=== PATIENT | male | born 1955 | race Caucasian/White ===

== ENCOUNTER 2023-05-01 03:32 | Inpatient (IN) | payer MEDICARE ==
[~2023-05-01] VITALS: Ht 172.7 cm; Wt 125.2 kg
[2023-05-01] MEDS ORDERED: FUROSEMIDE 40 MG/4 ML VIAL ONE ×4 (03:45→21:02)
[2023-05-01] MEDS ORDERED: NITROGLYCERIN OINT 1 GM PACKET TP ONE (03:45)
[2023-05-01] MEDS: FUROSEMIDE 40 MG/4 ML VIAL IV ONE (04:02)
[2023-05-01 04:07] LABS: ABG BASE EXCESS 4.1 mmol/L (-2.0-2.0); ABG HCO3 32.5 mmol/L (22.0-26.0); ABG PCO2 73.9 mmHg (35.0-48.0); ABG PH 7.261 (7.340-7.440); ABG PO2 148.3 mmHg (75.0-100.0); ABG SITE LEFT RADIAL; ABG TOTAL HEMOGLOBIN 9.6 G/dL (14.0-18.0); AaDO2 98.5 mmHg; COHb 1.6 % (0.0-3.9); MetHb 0.3 % (0.0-1.5); O2Hb 97.1 % (94.0-97.0)
[2023-05-01] MEDS: NITROGLYCERIN OINT 1 GM PACKET TP ONE (04:07)
[2023-05-01] MEDS ORDERED: DILT30TA2 PO (04:10)
[2023-05-01] MEDS ORDERED: ASCO500C18 PO (04:10)
[2023-05-01] MEDS ORDERED: DICL100G31 TP (04:10)
[2023-05-01] MEDS ORDERED: BISA5TAB10 PO (04:10)
[2023-05-01] MEDS ORDERED: CALC500T88 PO (04:10)
[2023-05-01] MEDS ORDERED: DOCU100C36 PO (04:10)
[2023-05-01] MEDS ORDERED: CARV3.122 PO (04:10)
[2023-05-01] MEDS ORDERED: ASPI81TA31 PO (04:10)
[2023-05-01 04:11] LABS: HEMATOCRIT 27.5 % (36.7-47.1); HEMOGLOBIN 8.7 g/dL (12.5-16.3); LYMPHOCYTES # (AUTO) 0.5 K/uL (0.8-4.8); MONOCYTES # (AUTO) 0.8 K/uL (0.1-1.30); NEUTROPHILS # (AUTO) 3.5 K/uL (1.8-8.9); PLATELET COUNT (AUTO) 254 K/uL (152-348); WHITE BLOOD COUNT (AUTO) 4.8 K/uL (3.6-10.2)
[2023-05-01] MEDS ORDERED: MAGN400O6 PO (04:11)
[2023-05-01] MEDS ORDERED: FERR-56 PO (04:11)
[2023-05-01] MEDS ORDERED: L. A1TAB10 PO (04:11)
[2023-05-01] MEDS ORDERED: NITR0.4T SL (04:11)
[2023-05-01] MEDS ORDERED: NA P133E RC (04:11)
[2023-05-01] MEDS ORDERED: GABA-532 PO (04:11)
[2023-05-01] MEDS ORDERED: BISA10SU61 RC (04:11)
[2023-05-01] MEDS ORDERED: ONDA-104 PO (04:11)
[2023-05-01] MEDS ORDERED: ACET-3117 PO (04:11)
[2023-05-01] MEDS ORDERED: DRON10CA5 PO (04:11)
[2023-05-01] MEDS ORDERED: POLY17PO4 PO (04:11)
[2023-05-01] MEDS ORDERED: VIT1TABL46 PO (04:11)
[2023-05-01] MEDS ORDERED: METO25TA6 PO (04:11)
[2023-05-01] MEDS ORDERED: ESCI10TA PO (04:11)
[2023-05-01] MEDS ORDERED: aspart insulin SUBCUT (04:11)
[2023-05-01] MEDS ORDERED: FURO40TA5 PO (04:11)
[2023-05-01] MEDS ORDERED: ENOX40DI SQ (04:11)
[2023-05-01] MEDS ORDERED: LOSA25TA27 PO (04:11)
[2023-05-01] MEDS ORDERED: MAG30ORA2 PO (04:11)
[2023-05-01] MEDS ORDERED: norco PO (04:11)
[2023-05-01] MEDS ORDERED: HYDR-894 PO (04:11)
[2023-05-01] MEDS ORDERED: IPRA3AMP22 IH (04:11)
[2023-05-01 04:24] LABS: BASOPHILS % (AUTO) 0.7 % (0.0-2.0); EOSINOPHILS % (AUTO) 0.8 % (0.0-7.0); LYMPHOCYTES % (AUTO) 10.1 % (20.5-51.5); MEAN CORPUSCULAR HEMOGLOBIN 28.5 uug (23.8-33.4); MEAN CORPUSCULAR HGB CONC 32 g/dL (32.5-36.3); MEAN CORPUSCULAR VOLUME 90.5 fL (73.0-96.2); MONOCYTES % (AUTO) 16.9 % (0.0-11.0); NEUTROPHILS % (AUTO) 71.5 % (38.5-71.5); RED BLOOD CELL COUNT(AUTO) 3.04 MIL/uL (4.06-5.63); RED CELL DISTRIBUTION WIDTH 20.8 % (12.1-16.2)
[2023-05-01 04:39] LABS: ALANINE AMINOTRANSFERASE 95 U/L (16-63); ALBUMIN 2.8 g/dL (3.4-5.0); ALKALINE PHOSPHATASE 80 U/L (50-136); ASPARTATE AMINOTRANSFERASE 25 U/L (15-37); BILIRUBIN,DIRECT 0.6 mg/dL (0.0-0.2); CALCIUM 8.8 mg/dL (8.5-10.1); CARBON DIOXIDE 33 mmol/L (21-32); CHLORIDE 99 mmol/L (98-107); CREATININE 3.4 mg/dL (0.6-1.3); GLUCOSE 94 mg/dL (74-106); POTASSIUM 5.3 mmol/L (3.5-5.1); SODIUM SERUM 139 mmol/L (136-145); TOTAL PROTEIN, SERUM 7.4 g/dL (6.4-8.2); UREA NITROGEN, BLOOD 57 mg/dL (7-18)
[2023-05-01 04:43] LABS: DIFFERENTIAL COMMENT 1
[2023-05-01 05:00] LABS: NT-PRO BNP 40316 pg/mL (0-125)
[2023-05-01 05:03] LABS: *BLOOD, URINE NEGATIVE (NEGATIVE); *CLARITY,URINE SLIGHTLY CLOUDY (CLEAR); *COLOR,URINE YELLOW (YELLOW); *KETONES,URINE NEGATIVE (NEGATIVE); *PROTEIN,URINE 2+ (NEGATIVE); *UROBILINOGEN,URINE 0.2 E.U./dl (NORMAL); LEUKOCYTE ESTERASE ,URINE NEGATIVE (NEGATIVE); NITRITE, URINE NEGATIVE (NEGATIVE); PH,URINE 5.5 (5.0-8.0); UGLUCOSE NEGATIVE (NEGATIVE)
[2023-05-01] MEDS ORDERED: ONDANSETRON 4 MG/2 ML VIAL IV PRN (05:30)
[2023-05-01] MEDS ORDERED: hydrALAZINE HCL 20 MG/1 ML VIAL IV PRN (05:30)
[2023-05-01] MEDS ORDERED: ACETAMINOPHEN 325 MG TABLET PO PRN (05:30)
[2023-05-01] MEDS ORDERED: hydrALAZINE HCL 20 MG/1 ML VIAL ONE (05:30)
[2023-05-01] MEDS ORDERED: DEXTROSE 50% 50 ML DISP.SYRIN IV PRN (05:30)
[2023-05-01] MEDS ORDERED: INSULIN REGULAR, HUMAN 300 UNIT/3 ML VIAL SQ PRN (05:30)
[2023-05-01] MEDS ORDERED: ALBUTEROL SULFATE 8 GM HFA.AER.AD IH PRN (05:30)
[2023-05-01 05:32] LABS: ANISOCYTOSIS 2+; EOSINOPHILS % (MANUAL) 2 % (0-8); LYMPHOCYTES % (MANUAL) 10 % (20-40); MONOCYTES % (MANUAL) 12 % (2-10); NEUTROPHILS % (MANUAL) 75 % (42-75); PLATELET ESTIMATE ADEQUATE; PROMYELOCYTES % 1 %
[2023-05-01] MEDS: hydrALAZINE HCL 20 MG/1 ML VIAL IV ONE (05:39)
[2023-05-01 06:06] LABS: *BILIRUBIN,URIN 2+ (NEGATIVE)
[2023-05-01 06:14] LABS: BACTERIA,URINE FEW /HPF (NONE SEEN); RBC,URINE 0-3 /HPF (0-3); SQUAMOUS EPITHELIAL CELL,UR FEW /HPF (NONE SEEN); WBC,URINE 0-3 /HPF (0-3)
[2023-05-01 06:15] LABS: URINE AMORPHOUS URATE MODERATE /HPF
[2023-05-01] MEDS: BLOOD SUGAR DIAGNOSTIC 1 EACH STRIP VI SCH (08:13)
[2023-05-01] MEDS ORDERED: DOCUSATE SODIUM 100 MG CAPSULE PO ONE (10:50)
[2023-05-01] MEDS ORDERED: ESCITALOPRAM OXALATE 10 MG TABLET ONE (10:50)
[2023-05-01] MEDS ORDERED: HEPARIN SODIUM,PORCINE 5,000 UNITS/ML VIAL ONE ×2 (10:51→21:02)
[2023-05-01] MEDS ORDERED: CARVEDILOL 3.125 MG TABLET ONE (10:51)
[2023-05-01] MEDS: FUROSEMIDE 40 MG/4 ML VIAL IV SCH (11:00)
[2023-05-01] MEDS ORDERED: ALBUTEROL SULFATE 2.5 MG/3 ML NEBU NEB PRN (11:00)
[2023-05-01] MEDS: LOSARTAN POTASSIUM 25 MG TABLET PO SCH (11:01)
[2023-05-01] MEDS: CARVEDILOL 3.125 MG TABLET PO SCH (11:01)
[2023-05-01] MEDS: DOCUSATE SODIUM 100 MG CAPSULE PO SCH (11:01)
[2023-05-01] MEDS: ESCITALOPRAM OXALATE 10 MG TABLET PO SCH (11:01)
[2023-05-01] MEDS: FLUTICASONE/VILANTEROL 1 EACH BLST.W.DEV INH SCH (11:02)
[2023-05-01] MEDS ORDERED: GABAPENTIN 100 MG CAPSULE ONE (11:03)
[2023-05-01] MEDS: GABAPENTIN 100 MG CAPSULE PO SCH (11:06)
[2023-05-01] MEDS: HEPARIN SODIUM,PORCINE 5,000 UNITS/ML VIAL SQ SCH (11:12)
[2023-05-01] MEDS ORDERED: DILTIAZEM HCL 30 MG TABLET ONE ×2 (11:50→18:27)
[2023-05-01] MEDS: DILTIAZEM HCL 30 MG TABLET PO SCH (11:57)
[2023-05-01 16:08] LABS: *BLOOD, URINE 3+ (NEGATIVE); *CLARITY,URINE CLOUDY (CLEAR); *COLOR,URINE Brown (YELLOW); *KETONES,URINE TRACE (NEGATIVE); *PROTEIN,URINE 2+ (NEGATIVE); *UROBILINOGEN,URINE 0.2 E.U./dl (NORMAL); LEUKOCYTE ESTERASE ,URINE 1+ (NEGATIVE); NITRITE, URINE NEGATIVE (NEGATIVE); UGLUCOSE NEGATIVE (NEGATIVE)
[2023-05-01 16:09] LABS: *BILIRUBIN,URIN 1+ (NEGATIVE)
[2023-05-01 16:13] LABS: *CREATININE,URINE 179.6 mg/dL (30-125); *URINE TOTAL PROTEIN RANDOM 183.4 mg/dL (<150/24HR)
[2023-05-01 16:15] LABS: BACTERIA,URINE MANY /HPF (NONE SEEN); RBC,URINE TNTC /HPF (0-3); SQUAMOUS EPITHELIAL CELL,UR FEW /HPF (NONE SEEN); WBC,URINE 0-3 /HPF (0-3)
[2023-05-01] MEDS ORDERED: MORPHINE SULFATE 2 MG/1 ML DISP.SYRIN ONE (16:42)
[2023-05-01] MEDS ORDERED: ONDANSETRON 4 MG/2 ML VIAL ONE (16:42)
[2023-05-01] MEDS: PANTOPRAZOLE SODIUM 40 MG VIAL IV SCH (17:22)
[2023-05-01] MEDS: MORPHINE SULFATE 2 MG/1 ML DISP.SYRIN IVP PRN (17:22)
[2023-05-01] MEDS ORDERED: PANTOPRAZOLE SODIUM 40 MG VIAL ONE (17:24)
[2023-05-02] VITALS (18 sets, daily range): BP systolic 50–142; BP diastolic 13–130; TEMP 97.5; O2SAT 76–95
[2023-05-02] MEDS ORDERED: NOREPINEPHRINE BITARTRATE 4 MG/4 ML VIAL IV ONE ×5 (03:30→18:31)
[2023-05-02] MEDS ORDERED: PANTOPRAZOLE SODIUM 40 MG VIAL ONE (09:43)
[2023-05-02] MEDS ORDERED: HEPARIN SODIUM,PORCINE 5,000 UNITS/ML VIAL ONE (09:43)
[2023-05-02] MEDS ORDERED: FUROSEMIDE 40 MG/4 ML VIAL ONE (09:43)
[2023-05-02 10:44] LABS: ABG BASE EXCESS 0.4 mmol/L (-2.0-2.0); ABG HCO3 28.5 mmol/L (22.0-26.0); ABG PCO2 65.8 mmHg (35.0-48.0); ABG PH 7.255 (7.340-7.440); ABG PO2 65.6 mmHg (75.0-100.0); ABG SITE RIGHT RADIAL; ABG TOTAL HEMOGLOBIN 10.5 G/dL (14.0-18.0); AaDO2 89.1 mmHg; COHb 0.8 % (0.0-3.9); MetHb 0.2 % (0.0-1.5); O2Hb 90.5 % (94.0-97.0); VT, ABG 442 mL
[2023-05-02] MEDS ORDERED: CEFTRIAXONE /D5W 50ML IVPB **ER PYXIS IV ONE (21:14)
[2023-05-02] MEDS: NOREPINEPHRINE BITARTRATE 4 MG/4 ML VIAL IV ONE ×2 (21:25→22:17)
[2023-05-02] MEDS: CEFTRIAXONE 1 G in IV DEXTROSE 5% 50 ML IV SCH (21:37)
[2023-05-02] MEDS: NOREPINEPHRINE BITARTRATE 8 MG in IV NORMAL SALINE 242 ML IV PRN (22:19)
[2023-05-02] MEDS ORDERED: MIDAZOLAM HCL 50 MG in IV NORMAL SALINE 40 ML IV PRN (23:30)
[2023-05-02] MEDS ORDERED: SUCCINYLCHOLINE CHLORIDE 200 MG/10 ML VIAL ONE (23:30)
[2023-05-02] MEDS ORDERED: PHENYLEPHRINE IV 50 MG in IV NORMAL SALINE 245 ML IV PRN (23:30)
[2023-05-02] MEDS ORDERED: ETOMIDATE 20 MG/10 ML VIAL ONE (23:30)
[2023-05-02] MEDS ORDERED: FENTANYL CITRATE/PF 1,000 MCG in IV NORMAL SALINE 80 ML IV PRN (23:30)
[2023-05-03] VITALS (91 sets, daily range): BP systolic 37–161; BP diastolic 11–131; TEMP 98–100.2; O2SAT 90–98
[2023-05-03] MEDS: NOREPINEPHRINE BITARTRATE 4 MG/4 ML VIAL IV ONE ×3 (00:12→04:47)
[2023-05-03] MEDS: PHENYLEPHRINE 10 MG/1 ML VIAL ONE ×2 (00:36→01:40)
[2023-05-03] MEDS: PROPOFOL 100 ML IV PRN (00:37)
[2023-05-03] MEDS: PHENYLEPHRINE IV 50 MG in IV NORMAL SALINE 245 ML IV PRN (00:39)
[2023-05-03 01:44] LABS: ABG BASE EXCESS -0.7 mmol/L (-2.0-2.0); ABG HCO3 26.1 mmol/L (22.0-26.0); ABG PCO2 53.3 mmHg (35.0-48.0); ABG PH 7.307 (7.340-7.440); ABG PO2 61.1 mmHg (75.0-100.0); ABG SITE RIGHT RADIAL; ABG TOTAL HEMOGLOBIN 10.1 G/dL (14.0-18.0); AaDO2 88.8 mmHg; COHb 0.3 % (0.0-3.9); MetHb 0.2 % (0.0-1.5); O2Hb 89.2 % (94.0-97.0); VT, ABG 550 mL
[2023-05-03] MEDS ORDERED: AMIODARONE HCL 150 MG/3 ML VIAL IV ONE ×2 (01:47→01:48)
[2023-05-03] MEDS: AMIODARONE HCL IV 150 MG in IV DEXTROSE 5% 100 ML IV ONE (02:07)
[2023-05-03 05:20] LABS: BASOPHILS # (AUTO) 0.1 K/UL (0.0-0.2); BASOPHILS % (AUTO) 0.3 % (0.0-2.0); HEMATOCRIT 26.7 % (36.7-47.1); HEMOGLOBIN 8.3 g/dL (12.5-16.3); LYMPHOCYTES # (AUTO) 0.4 K/uL (0.8-4.8); LYMPHOCYTES % (AUTO) 1.6 % (20.5-51.5); MEAN CORPUSCULAR HEMOGLOBIN 28.3 uug (23.8-33.4); MEAN CORPUSCULAR HGB CONC 31 g/dL (32.5-36.3); MEAN CORPUSCULAR VOLUME 90.8 fL (73.0-96.2); MONOCYTES # (AUTO) 1.4 K/uL (0.1-1.30); MONOCYTES % (AUTO) 5.9 % (0.0-11.0); NEUTROPHILS # (AUTO) 21.1 K/uL (1.8-8.9); NEUTROPHILS % (AUTO) 92.2 % (38.5-71.5); PLATELET COUNT (AUTO) 266 K/uL (152-348); RED BLOOD CELL COUNT(AUTO) 2.94 MIL/uL (4.06-5.63); RED CELL DISTRIBUTION WIDTH 20.5 % (12.1-16.2); WHITE BLOOD COUNT (AUTO) 22.9 K/uL (3.6-10.2)
[2023-05-03 05:23] LABS: DIFFERENTIAL COMMENT 1
[2023-05-03 05:30] LABS: CALCIUM 8.3 mg/dL (8.5-10.1); CREATININE 4.1 mg/dL (0.6-1.3); MAGNESIUM 2.2 mg/dL (1.8-2.4); PHOSPHOROUS 6.9 mg/dL (2.5-4.9)
[2023-05-03] MEDS: AMIODARONE HCL IV 450 MG in IV DEXTROSE 5% 250 ML IV PRN (06:30)
[2023-05-03 07:25] LABS: ABG BASE EXCESS -2.8 mmol/L (-2.0-2.0); ABG HCO3 21.6 mmol/L (22.0-26.0); ABG PCO2 35.6 mmHg (35.0-48.0); ABG PO2 72.9 mmHg (75.0-100.0); ABG TOTAL HEMOGLOBIN 9.6 G/dL (14.0-18.0); AaDO2 94.8 mmHg; COHb 0.3 % (0.0-3.9); MetHb 0.4 % (0.0-1.5); O2Hb 93.1 % (94.0-97.0); VT, ABG 550 mL
[2023-05-03] MEDS ORDERED: NOREPINEPHRINE BITARTRATE 32 MG in IV NORMAL SALINE 218 ML IV PRN ×2 (07:30→08:00)
[2023-05-03] MEDS ORDERED: PHENYLEPHRINE IV 100 MG in IV NORMAL SALINE 240 ML IV PRN (08:00)
[2023-05-03] MEDS: ACETAMINOPHEN 650 MG SUPP.RECT RC PRN (08:34)
[2023-05-03] MEDS: NOREPINEPHRINE BITARTRATE 32 MG in IV NORMAL SALINE 218 ML IV PRN (09:22)
[2023-05-03] MEDS ORDERED: NORMAL SALINE IV ONE (09:45)
[2023-05-03] MEDS ORDERED: CHLOROTHIAZIDE SODIUM IV ONE (09:45)
[2023-05-03] MEDS: MUPIROCIN 2% OINT 22 GM TUBE NS SCH (10:43)
[2023-05-03] MEDS: METOLAZONE 2.5 MG TABLET GT ONE (10:43)
[2023-05-03] MEDS: FUROSEMIDE 20 MG/2 ML VIAL IV ONE (10:45)
[2023-05-03] MEDS: DEXTROSE 50% 50 ML DISP.SYRIN IV ONE (12:31)
[2023-05-03] MEDS: INSULIN REGULAR, HUMAN 300 UNIT/3 ML VIAL IV ONE (12:34)
[2023-05-03] MEDS: IV D5W 1000ML 1,000 ML IV PRN (12:48)
[2023-05-03 14:53] LABS: BASOPHILS % (AUTO) 0.1 % (0.0-2.0); HEMATOCRIT 26.4 % (36.7-47.1); HEMOGLOBIN 8.3 g/dL (12.5-16.3); LYMPHOCYTES # (AUTO) 0.5 K/uL (0.8-4.8); LYMPHOCYTES % (AUTO) 1.9 % (20.5-51.5); MEAN CORPUSCULAR HEMOGLOBIN 28.6 uug (23.8-33.4); MEAN CORPUSCULAR HGB CONC 32 g/dL (32.5-36.3); MEAN CORPUSCULAR VOLUME 90.7 fL (73.0-96.2); MONOCYTES # (AUTO) 1.4 K/uL (0.1-1.30); MONOCYTES % (AUTO) 5.8 % (0.0-11.0); NEUTROPHILS # (AUTO) 21.6 K/uL (1.8-8.9); NEUTROPHILS % (AUTO) 92.2 % (38.5-71.5); PLATELET COUNT (AUTO) 223 K/uL (152-348); RED BLOOD CELL COUNT(AUTO) 2.91 MIL/uL (4.06-5.63); RED CELL DISTRIBUTION WIDTH 20.9 % (12.1-16.2); WHITE BLOOD COUNT (AUTO) 23.4 K/uL (3.6-10.2)
[2023-05-03 15:01] LABS: DIFFERENTIAL COMMENT 1
[2023-05-03] MEDS: PHENYLEPHRINE IV 100 MG in IV NORMAL SALINE 240 ML IV PRN (15:01)
[2023-05-03 15:19] LABS: THYROID STIMULATING HORMONE 5.345 mIU/mL (0.358-3.740)
[2023-05-03] MEDS ORDERED: REMEDY ESSENTIAL ZINC PASTE 113 GM TOP PRN (15:30)
[2023-05-03 15:32] LABS: ALBUMIN 2.4 g/dL (3.4-5.0); BILIRUBIN,TOTAL 2.1 mg/dL (0.2-1.0); CREATININE 4.2 mg/dL (0.6-1.3); MAGNESIUM 2.2 mg/dL (1.8-2.4); PHOSPHOROUS 6.3 mg/dL (2.5-4.9); POTASSIUM 5.5 mmol/L (3.5-5.1); TOTAL PROTEIN, SERUM 6.8 g/dL (6.4-8.2)
[2023-05-03 16:28] LABS: MAGNESIUM 2.3 mg/dL (1.8-2.4); PHOSPHOROUS 6.4 mg/dL (2.5-4.9)
[2023-05-03] MEDS ORDERED: HEPARIN SODIUM,PORCINE 5,000 UNITS/ML VIAL SQ PRN (17:15)
[2023-05-03] MEDS: HEPARIN SODIUM,PORCINE 5,000 UNITS/ML VIAL IV ONE (17:26)
[2023-05-03] MEDS: HEPARIN/D5W DRIP 500 ML IV PRN (17:49)
[2023-05-03] MEDS ORDERED: PIPERACILLIN/TAZO 2.25 G in IV DEXTROSE 5% 50 ML IV SCH (21:15)
[2023-05-03] MEDS ORDERED: PIPERACILLIN/TAZOBACTAM/D5W 50 ML ONE (21:42)
[2023-05-03] MEDS: PIPERACILLIN/TAZO 2.25 G in IV DEXTROSE 5% 50 ML IV SCH (22:17)
[2023-05-04] VITALS (91 sets, daily range): BP systolic 71–143; BP diastolic 23–117; TEMP 97.4–98.9; O2SAT 91–98
[2023-05-04] MEDS ORDERED: PIPERACILLIN/TAZOBACTAM/D5W 50 ML ONE (02:48)
[2023-05-04 05:02] LABS: EOSINOPHILS # (AUTO) 0.1 K/uL (0.0-0.7); EOSINOPHILS % (AUTO) 0.5 % (0.0-7.0); HEMATOCRIT 25.3 % (36.7-47.1); HEMOGLOBIN 8.1 g/dL (12.5-16.3); LYMPHOCYTES # (AUTO) 0.6 K/uL (0.8-4.8); LYMPHOCYTES % (AUTO) 3.1 % (20.5-51.5); MEAN CORPUSCULAR HEMOGLOBIN 28.3 uug (23.8-33.4); MEAN CORPUSCULAR HGB CONC 32 g/dL (32.5-36.3); MEAN CORPUSCULAR VOLUME 88.9 fL (73.0-96.2); MONOCYTES # (AUTO) 0.9 K/uL (0.1-1.30); MONOCYTES % (AUTO) 5.1 % (0.0-11.0); NEUTROPHILS % (AUTO) 91.3 % (38.5-71.5); PLATELET COUNT (AUTO) 193 K/uL (152-348); RED BLOOD CELL COUNT(AUTO) 2.85 MIL/uL (4.06-5.63); RED CELL DISTRIBUTION WIDTH 21.3 % (12.1-16.2); WHITE BLOOD COUNT (AUTO) 18.6 K/uL (3.6-10.2)
[2023-05-04 05:12] LABS: DIFFERENTIAL COMMENT 1
[2023-05-04 05:26] LABS: ALBUMIN 2.2 g/dL (3.4-5.0); BILIRUBIN,TOTAL 2.1 mg/dL (0.2-1.0); CALCIUM 7.8 mg/dL (8.5-10.1); CREATININE 3.4 mg/dL (0.6-1.3); MAGNESIUM 2.1 mg/dL (1.8-2.4); PHOSPHOROUS 4.7 mg/dL (2.5-4.9); POTASSIUM 4.7 mmol/L (3.5-5.1); TOTAL PROTEIN, SERUM 6.2 g/dL (6.4-8.2)
[2023-05-04 08:50] LABS: ABG BASE EXCESS 2.1 mmol/L (-2.0-2.0); ABG PCO2 37.8 mmHg (35.0-48.0); ABG PH 7.456 (7.340-7.440); ABG PO2 85.4 mmHg (75.0-100.0); ABG TOTAL HEMOGLOBIN 9.2 G/dL (14.0-18.0); AaDO2 96.9 mmHg; COHb 0.3 % (0.0-3.9); MetHb 0.1 % (0.0-1.5); O2Hb 95.3 % (94.0-97.0); VT, ABG 550 mL
[2023-05-04 09:07] LABS: A/G RATIO 0.6 (0.7-1.7); ALBUMIN 2.5 g/dL (2.9-4.4); ALPHA-1-GLOBULIN 0.4 g/dL (0.0-0.4); ALPHA-2-GLOBULIN 0.5 g/dL (0.4-1.0); BETA GLOBULIN 0.9 g/dL (0.7-1.3); GAMMA GLOBULIN 2.1 g/dL (0.4-1.8); GLOBULIN, TOTAL 3.9 g/dL (2.2-3.9); M-SPIKE 0.7 g/dL (Not Observed)
[2023-05-04 12:06] LABS: HEPATITIS B SURFACE AB, QUAL Non Reactive (.); HEPATITIS B SURFACE AG Negative (Negative)
[2023-05-04] MEDS: PIPERACILLIN SODIUM/TAZOBACTAM 3.375 G in IV DEXTROSE 5% 100 ML IV SCH (14:03)
[2023-05-05] VITALS (89 sets, daily range): BP systolic 51–246; BP diastolic 36–206; TEMP 96.1–97.8; O2SAT 84–100
[2023-05-05 05:09] LABS: BASOPHILS % (AUTO) 0.2 % (0.0-2.0); EOSINOPHILS # (AUTO) 0.3 K/uL (0.0-0.7); EOSINOPHILS % (AUTO) 1.6 % (0.0-7.0); HEMATOCRIT 27.4 % (36.7-47.1); HEMOGLOBIN 8.8 g/dL (12.5-16.3); LYMPHOCYTES # (AUTO) 0.9 K/uL (0.8-4.8); LYMPHOCYTES % (AUTO) 4.5 % (20.5-51.5); MEAN CORPUSCULAR HEMOGLOBIN 28.1 uug (23.8-33.4); MEAN CORPUSCULAR HGB CONC 32 g/dL (32.5-36.3); MEAN CORPUSCULAR VOLUME 87.2 fL (73.0-96.2); MONOCYTES % (AUTO) 4.8 % (0.0-11.0); NEUTROPHILS # (AUTO) 18.7 K/uL (1.8-8.9); NEUTROPHILS % (AUTO) 88.9 % (38.5-71.5); PLATELET COUNT (AUTO) 192 K/uL (152-348); RED BLOOD CELL COUNT(AUTO) 3.14 MIL/uL (4.06-5.63); RED CELL DISTRIBUTION WIDTH 21.1 % (12.1-16.2); WHITE BLOOD COUNT (AUTO) 21.1 K/uL (3.6-10.2)
[2023-05-05 05:16] LABS: DIFFERENTIAL COMMENT 1
[2023-05-05 05:23] LABS: CALCIUM 7.2 mg/dL (8.5-10.1); CREATININE 3.3 mg/dL (0.6-1.3); MAGNESIUM 1.8 mg/dL (1.8-2.4); PHOSPHOROUS 4.6 mg/dL (2.5-4.9)
[2023-05-05 05:30] LABS: MetHb 0.3 % (0.0-1.5); VT, ABG 550 mL
[2023-05-05] MEDS ORDERED: CALCIUM CHLORIDE 1 GM/10 ML DISP.SYRIN IVP ONE (10:00)
[2023-05-05] MEDS ORDERED: EPINEPHRINE 1:10,000 1 MG/10 ML DISP.SYRIN ONE (10:00)
[2023-05-05] MEDS ORDERED: SODIUM BICARBONATE 8.4% 50 MEQ/50 ML DISP.SYRIN IV ONE (10:00)
[2023-05-05 10:35] LABS: CALCIUM 8.4 mg/dL (8.5-10.1); CREATININE 3.6 mg/dL (0.6-1.3); POTASSIUM 4.3 mmol/L (3.5-5.1)
[2023-05-05 10:36] LABS: BASOPHILS # (AUTO) 0.1 K/UL (0.0-0.2); BASOPHILS % (AUTO) 0.5 % (0.0-2.0); DIFFERENTIAL COMMENT 0; EOSINOPHILS # (AUTO) 0.6 K/uL (0.0-0.7); EOSINOPHILS % (AUTO) 2.3 % (0.0-7.0); HEMATOCRIT 30.1 % (36.7-47.1); HEMOGLOBIN 9.4 g/dL (12.5-16.3); LYMPHOCYTES # (AUTO) 1.5 K/uL (0.8-4.8); LYMPHOCYTES % (AUTO) 5.5 % (20.5-51.5); MEAN CORPUSCULAR HEMOGLOBIN 27.9 uug (23.8-33.4); MEAN CORPUSCULAR HGB CONC 31 g/dL (32.5-36.3); MEAN CORPUSCULAR VOLUME 89.6 fL (73.0-96.2); MONOCYTES # (AUTO) 1.3 K/uL (0.1-1.30); NEUTROPHILS # (AUTO) 22.9 K/uL (1.8-8.9); NEUTROPHILS % (AUTO) 86.7 % (38.5-71.5); PLATELET COUNT (AUTO) 196 K/uL (152-348); RED BLOOD CELL COUNT(AUTO) 3.36 MIL/uL (4.06-5.63); RED CELL DISTRIBUTION WIDTH 21.7 % (12.1-16.2); WHITE BLOOD COUNT (AUTO) 26.5 K/uL (3.6-10.2)
[2023-05-05 10:40] LABS: ALBUMIN 1.6 g/dL (3.4-5.0); BILIRUBIN,TOTAL 1.7 mg/dL (0.2-1.0); PHOSPHOROUS 7.1 mg/dL (2.5-4.9); TOTAL PROTEIN, SERUM 5.4 g/dL (6.4-8.2)
[2023-05-05 10:56] LABS: ABG BASE EXCESS -3.4 mmol/L (-2.0-2.0); ABG HCO3 23.2 mmol/L (22.0-26.0); ABG PH 7.294 (7.340-7.440); ABG PO2 76.1 mmHg (75.0-100.0); ABG SITE RIGHT RADIAL; ABG TOTAL HEMOGLOBIN 11.1 G/dL (14.0-18.0); AaDO2 93.7 mmHg; COHb 0.8 % (0.0-3.9)
[2023-05-05] MEDS: PIPERACILLIN/TAZO 2.25 G in IV DEXTROSE 5% 50 ML IV SCH (14:25)
[2023-05-06] VITALS (96 sets, daily range): BP systolic 61–171; BP diastolic 19–132; TEMP 97.5–99.1; O2SAT 89–100
[2023-05-06 05:19] LABS: BASOPHILS # (AUTO) 0.1 K/UL (0.0-0.2); BASOPHILS % (AUTO) 0.4 % (0.0-2.0); EOSINOPHILS # (AUTO) 0.2 K/uL (0.0-0.7); EOSINOPHILS % (AUTO) 0.7 % (0.0-7.0); HEMATOCRIT 28.9 % (36.7-47.1); HEMOGLOBIN 9.2 g/dL (12.5-16.3); LYMPHOCYTES # (AUTO) 2.2 K/uL (0.8-4.8); LYMPHOCYTES % (AUTO) 8.1 % (20.5-51.5); MEAN CORPUSCULAR HEMOGLOBIN 27.8 uug (23.8-33.4); MEAN CORPUSCULAR HGB CONC 32 g/dL (32.5-36.3); MEAN CORPUSCULAR VOLUME 87.5 fL (73.0-96.2); MONOCYTES # (AUTO) 1.8 K/uL (0.1-1.30); MONOCYTES % (AUTO) 6.5 % (0.0-11.0); NEUTROPHILS # (AUTO) 22.8 K/uL (1.8-8.9); NEUTROPHILS % (AUTO) 84.3 % (38.5-71.5); PLATELET COUNT (AUTO) 143 K/uL (152-348); RED CELL DISTRIBUTION WIDTH 21.2 % (12.1-16.2)
[2023-05-06 05:20] LABS: ABG BASE EXCESS -1.1 mmol/L (-2.0-2.0); ABG HCO3 24.2 mmol/L (22.0-26.0); ABG PH 7.368 (7.340-7.440); ABG PO2 64.3 mmHg (75.0-100.0); ABG SITE LEFT RADIAL; ABG TOTAL HEMOGLOBIN 10.7 G/dL (14.0-18.0); AaDO2 91.9 mmHg; COHb 0.2 % (0.0-3.9); MetHb 0.3 % (0.0-1.5); O2Hb 88.7 % (94.0-97.0); VT, ABG 550 mL
[2023-05-06 05:23] LABS: DIFFERENTIAL COMMENT 1
[2023-05-06 05:25] LABS: CALCIUM 8.1 mg/dL (8.5-10.1); CREATININE 3.1 mg/dL (0.6-1.3); POTASSIUM 4.4 mmol/L (3.5-5.1)
[2023-05-06 05:31] LABS: MAGNESIUM 1.8 mg/dL (1.8-2.4); PHOSPHOROUS 5.1 mg/dL (2.5-4.9)
[2023-05-06] MEDS: ALBUMIN HUMAN 25% 100 ML IV SCH (08:14)
[2023-05-06 08:33] LABS: ALBUMIN 1.9 g/dL (3.4-5.0); BILIRUBIN,DIRECT 1.8 mg/dL (0.0-0.2); BILIRUBIN,TOTAL 2.4 mg/dL (0.2-1.0); TOTAL PROTEIN, SERUM 6.2 g/dL (6.4-8.2)
[2023-05-06] MEDS: FUROSEMIDE 40 MG/4 ML VIAL IV SCH (09:43)
[2023-05-07] VITALS (89 sets, daily range): BP systolic 56–241; BP diastolic 18–124; TEMP 98.2–100.1; O2SAT 92–99
[2023-05-07] MEDS: VANCOMYCIN IV 2,000 MG in IV DEXTROSE 5% 500 ML IV ONE (02:00)
[2023-05-07] MEDS ORDERED: MEROPENEM 500MG/NS 50ML PB ***ER PYXIS ONLY IV ONE (02:54)
[2023-05-07] MEDS ORDERED: VANCOMYCIN 1000 MG VIAL ONE (02:55)
[2023-05-07] MEDS: MEROPENEM 500 MG in IV NORMAL SALINE 50 ML IV SCH ×2 (03:59→20:31)
[2023-05-07 05:35] LABS: BASOPHILS # (AUTO) 0.1 K/UL (0.0-0.2); BASOPHILS % (AUTO) 0.3 % (0.0-2.0); EOSINOPHILS % (AUTO) 0.1 % (0.0-7.0); HEMATOCRIT 27.8 % (36.7-47.1); HEMOGLOBIN 8.8 g/dL (12.5-16.3); LYMPHOCYTES # (AUTO) 0.9 K/uL (0.8-4.8); LYMPHOCYTES % (AUTO) 3.7 % (20.5-51.5); MEAN CORPUSCULAR HEMOGLOBIN 27.8 uug (23.8-33.4); MEAN CORPUSCULAR HGB CONC 32 g/dL (32.5-36.3); MEAN CORPUSCULAR VOLUME 87.3 fL (73.0-96.2); MONOCYTES # (AUTO) 2.2 K/uL (0.1-1.30); MONOCYTES % (AUTO) 9.2 % (0.0-11.0); NEUTROPHILS # (AUTO) 20.3 K/uL (1.8-8.9); NEUTROPHILS % (AUTO) 86.7 % (38.5-71.5); PLATELET COUNT (AUTO) 118 K/uL (152-348); RED BLOOD CELL COUNT(AUTO) 3.18 MIL/uL (4.06-5.63); RED CELL DISTRIBUTION WIDTH 21.2 % (12.1-16.2); WHITE BLOOD COUNT (AUTO) 23.5 K/uL (3.6-10.2)
[2023-05-07 05:56] LABS: CALCIUM 8.2 mg/dL (8.5-10.1); CREATININE 2.8 mg/dL (0.6-1.3); POTASSIUM 4.1 mmol/L (3.5-5.1)
[2023-05-07 06:17] LABS: DIFFERENTIAL COMMENT 1
[2023-05-07] MEDS: ACETAMINOPHEN 650 MG/20.3 ML LIQUID UDC GT ONE (08:00)
[2023-05-07] MEDS ORDERED: VANCOMYCIN IV 500 MG in IV DEXTROSE 5% 100 ML IV PRN (10:00)
[2023-05-07] MEDS: PHENYLEPHRINE IV 100 MG in IV NORMAL SALINE 240 ML IV PRN (12:09)
[2023-05-08] VITALS (72 sets, daily range): BP systolic 57–167; BP diastolic 28–119; TEMP 97.8–99.9; O2SAT 73–100
[2023-05-08 05:13] LABS: BASOPHILS % (AUTO) 0.1 % (0.0-2.0); EOSINOPHILS # (AUTO) 0.1 K/uL (0.0-0.7); EOSINOPHILS % (AUTO) 0.4 % (0.0-7.0); HEMATOCRIT 26.2 % (36.7-47.1); HEMOGLOBIN 8.3 g/dL (12.5-16.3); LYMPHOCYTES # (AUTO) 0.7 K/uL (0.8-4.8); LYMPHOCYTES % (AUTO) 4.6 % (20.5-51.5); MEAN CORPUSCULAR HEMOGLOBIN 27.6 uug (23.8-33.4); MEAN CORPUSCULAR HGB CONC 32 g/dL (32.5-36.3); MEAN CORPUSCULAR VOLUME 87.2 fL (73.0-96.2); MONOCYTES # (AUTO) 1.7 K/uL (0.1-1.30); MONOCYTES % (AUTO) 10.6 % (0.0-11.0); NEUTROPHILS # (AUTO) 13.5 K/uL (1.8-8.9); NEUTROPHILS % (AUTO) 84.3 % (38.5-71.5); PLATELET COUNT (AUTO) 124 K/uL (152-348); RED CELL DISTRIBUTION WIDTH 20.9 % (12.1-16.2); WHITE BLOOD COUNT (AUTO) 16.1 K/uL (3.6-10.2)
[2023-05-08 05:20] LABS: DIFFERENTIAL COMMENT 1
[2023-05-08 05:25] LABS: ALBUMIN 1.9 g/dL (3.4-5.0); BILIRUBIN,DIRECT 1.9 mg/dL (0.0-0.2); BILIRUBIN,TOTAL 2.6 mg/dL (0.2-1.0); CALCIUM 7.9 mg/dL (8.5-10.1); CREATININE 3.3 mg/dL (0.6-1.3); MAGNESIUM 1.9 mg/dL (1.8-2.4); PHOSPHOROUS 5.6 mg/dL (2.5-4.9); POTASSIUM 4.2 mmol/L (3.5-5.1); TOTAL PROTEIN, SERUM 5.6 g/dL (6.4-8.2)
[2023-05-08 06:09] LABS: ABG BASE EXCESS -1.6 mmol/L (-2.0-2.0); ABG HCO3 21.9 mmol/L (22.0-26.0); ABG PCO2 32.1 mmHg (35.0-48.0); ABG PH 7.451 (7.340-7.440); ABG PO2 148.5 mmHg (75.0-100.0); ABG SITE LEFT RADIAL; ABG TOTAL HEMOGLOBIN 9.4 G/dL (14.0-18.0); COHb 0.3 % (0.0-3.9); MetHb 0.4 % (0.0-1.5); O2Hb 98.2 % (94.0-97.0); VT, ABG 550 mL
[2023-05-08] MEDS ORDERED: VANCOMYCIN IV 1,000 MG in IV DEXTROSE 5% 250 ML IV ONE ×2 (10:30→11:45)
[2023-05-08] MEDS: VANCOMYCIN IV 1,000 MG in IV DEXTROSE 5% 250 ML IV ONE (16:40)
[2023-05-09] VITALS (59 sets, daily range): BP systolic 79–152; BP diastolic 26–127; TEMP 97.9–98.9; O2SAT 95–100
[2023-05-09 06:07] LABS: ABG BASE EXCESS -1.7 mmol/L (-2.0-2.0); ABG HCO3 22.7 mmol/L (22.0-26.0); ABG PCO2 36.9 mmHg (35.0-48.0); ABG PH 7.407 (7.340-7.440); ABG PO2 96.4 mmHg (75.0-100.0); ABG SITE LEFT RADIAL; ABG TOTAL HEMOGLOBIN 9.5 G/dL (14.0-18.0); AaDO2 97.4 mmHg; COHb 1.2 % (0.0-3.9); MetHb 0.2 % (0.0-1.5); O2Hb 95.8 % (94.0-97.0); VT, ABG 550 mL
[2023-05-09 07:11] LABS: CREATININE 2.9 mg/dL (0.6-1.3); MAGNESIUM 1.9 mg/dL (1.8-2.4); PHOSPHOROUS 5.3 mg/dL (2.5-4.9); POTASSIUM 3.9 mmol/L (3.5-5.1); VANCOMYCIN,RANDOM 21.2 ug/mL (20.0-30.0)
[2023-05-09 07:20] LABS: BASOPHILS % (AUTO) 0.1 % (0.0-2.0); EOSINOPHILS # (AUTO) 0.1 K/uL (0.0-0.7); EOSINOPHILS % (AUTO) 1.1 % (0.0-7.0); HEMATOCRIT 26.7 % (36.7-47.1); HEMOGLOBIN 8.5 g/dL (12.5-16.3); LYMPHOCYTES # (AUTO) 0.8 K/uL (0.8-4.8); LYMPHOCYTES % (AUTO) 6.6 % (20.5-51.5); MEAN CORPUSCULAR HEMOGLOBIN 27.7 uug (23.8-33.4); MEAN CORPUSCULAR HGB CONC 32 g/dL (32.5-36.3); MEAN CORPUSCULAR VOLUME 87.6 fL (73.0-96.2); MONOCYTES # (AUTO) 1.5 K/uL (0.1-1.30); MONOCYTES % (AUTO) 12.2 % (0.0-11.0); NEUTROPHILS # (AUTO) 9.9 K/uL (1.8-8.9); PLATELET COUNT (AUTO) 117 K/uL (152-348); RED BLOOD CELL COUNT(AUTO) 3.05 MIL/uL (4.06-5.63); WHITE BLOOD COUNT (AUTO) 12.4 K/uL (3.6-10.2)
[2023-05-09 07:28] LABS: DIFFERENTIAL COMMENT 1
[2023-05-10] VITALS (52 sets, daily range): BP systolic 81–134; BP diastolic 34–99; TEMP 97–98.8; O2SAT 90–100
[2023-05-10 05:04] LABS: BASOPHILS % (AUTO) 0.4 % (0.0-2.0); EOSINOPHILS # (AUTO) 0.2 K/uL (0.0-0.7); EOSINOPHILS % (AUTO) 1.6 % (0.0-7.0); HEMOGLOBIN 8.6 g/dL (12.5-16.3); LYMPHOCYTES # (AUTO) 0.7 K/uL (0.8-4.8); LYMPHOCYTES % (AUTO) 5.4 % (20.5-51.5); MEAN CORPUSCULAR HEMOGLOBIN 27.6 uug (23.8-33.4); MEAN CORPUSCULAR HGB CONC 32 g/dL (32.5-36.3); MEAN CORPUSCULAR VOLUME 86.9 fL (73.0-96.2); MONOCYTES # (AUTO) 1.1 K/uL (0.1-1.30); MONOCYTES % (AUTO) 9.2 % (0.0-11.0); NEUTROPHILS # (AUTO) 10.3 K/uL (1.8-8.9); NEUTROPHILS % (AUTO) 83.4 % (38.5-71.5); PLATELET COUNT (AUTO) 149 K/uL (152-348); RED CELL DISTRIBUTION WIDTH 21.1 % (12.1-16.2); WHITE BLOOD COUNT (AUTO) 12.3 K/uL (3.6-10.2)
[2023-05-10 05:27] LABS: CALCIUM 7.9 mg/dL (8.5-10.1); CREATININE 3.1 mg/dL (0.6-1.3); MAGNESIUM 1.8 mg/dL (1.8-2.4); PHOSPHOROUS 5.7 mg/dL (2.5-4.9); POTASSIUM 3.9 mmol/L (3.5-5.1)
[2023-05-10 05:39] LABS: DIFFERENTIAL COMMENT 1
[2023-05-10 06:21] LABS: ABG HCO3 20.6 mmol/L (22.0-26.0); ABG PCO2 31.4 mmHg (35.0-48.0); ABG PH 7.434 (7.340-7.440); ABG SITE LEFT RADIAL; ABG TOTAL HEMOGLOBIN 9.6 G/dL (14.0-18.0); AaDO2 98.9 mmHg; COHb 0.7 % (0.0-3.9); MetHb 0.2 % (0.0-1.5); O2Hb 98.2 % (94.0-97.0); VT, ABG 550 mL
[2023-05-10] MEDS: VANCOMYCIN IV 500 MG in IV DEXTROSE 5% 100 ML IV SCH (19:55)
[2023-05-11] VITALS (88 sets, daily range): BP systolic 68–150; BP diastolic 34–132; TEMP 97.5–97.8; O2SAT 93–99
[2023-05-11 05:28] LABS: BASOPHILS % (AUTO) 0.3 % (0.0-2.0); EOSINOPHILS # (AUTO) 0.3 K/uL (0.0-0.7); EOSINOPHILS % (AUTO) 2.2 % (0.0-7.0); HEMATOCRIT 24.3 % (36.7-47.1); HEMOGLOBIN 7.7 g/dL (12.5-16.3); LYMPHOCYTES # (AUTO) 0.6 K/uL (0.8-4.8); LYMPHOCYTES % (AUTO) 5.1 % (20.5-51.5); MEAN CORPUSCULAR HEMOGLOBIN 28.4 uug (23.8-33.4); MEAN CORPUSCULAR HGB CONC 32 g/dL (32.5-36.3); MEAN CORPUSCULAR VOLUME 89.1 fL (73.0-96.2); MONOCYTES % (AUTO) 8.4 % (0.0-11.0); NEUTROPHILS # (AUTO) 10.1 K/uL (1.8-8.9); PLATELET COUNT (AUTO) 134 K/uL (152-348); RED BLOOD CELL COUNT(AUTO) 2.73 MIL/uL (4.06-5.63); RED CELL DISTRIBUTION WIDTH 21.1 % (12.1-16.2)
[2023-05-11 05:31] LABS: DIFFERENTIAL COMMENT 1
[2023-05-11 05:39] LABS: ABG BASE EXCESS -3.5 mmol/L (-2.0-2.0); ABG HCO3 22.3 mmol/L (22.0-26.0); ABG PCO2 43.2 mmHg (35.0-48.0); ABG PH 7.331 (7.340-7.440); ABG PO2 64.5 mmHg (75.0-100.0); ABG SITE LEFT RADIAL; ABG TOTAL HEMOGLOBIN 10.5 G/dL (14.0-18.0); AaDO2 91.2 mmHg; COHb 0.2 % (0.0-3.9); MetHb 0.3 % (0.0-1.5); VT, ABG 550 mL
[2023-05-11 05:40] LABS: ALBUMIN 1.6 g/dL (3.4-5.0); BILIRUBIN,DIRECT 1.4 mg/dL (0.0-0.2); BILIRUBIN,TOTAL 1.7 mg/dL (0.2-1.0); CALCIUM 6.7 mg/dL (8.5-10.1); CREATININE 2.3 mg/dL (0.6-1.3); MAGNESIUM 1.6 mg/dL (1.8-2.4); PHOSPHOROUS 4.6 mg/dL (2.5-4.9); POTASSIUM 3.1 mmol/L (3.5-5.1); TOTAL PROTEIN, SERUM 5.5 g/dL (6.4-8.2)
[2023-05-11] MEDS ORDERED: AMIODARONE HCL IV 450 MG in IV DEXTROSE 5% 250 ML IV PRN (08:00)
[2023-05-11] MEDS: POTASSIUM CHLORIDE 20 MEQ POWDER PACKET GT ONE ×2 (08:13→09:26)
[2023-05-11] MEDS: MAGNESIUM SULFATE/D5W 100 ML IV SCH (09:27)
[2023-05-11] MEDS: AMIODARONE HCL IV 450 MG in IV DEXTROSE 5% 250 ML IV PRN (09:45)
[2023-05-11] MEDS: MEROPENEM 500 MG in IV NORMAL SALINE 50 ML IV ONE (10:50)
[2023-05-12] VITALS (79 sets, daily range): BP systolic 11–136; BP diastolic 55–119; TEMP 97.8–99; O2SAT 70–100
[2023-05-12 05:01] LABS: BASOPHILS # (AUTO) 0.1 K/UL (0.0-0.2); BASOPHILS % (AUTO) 0.7 % (0.0-2.0); EOSINOPHILS # (AUTO) 0.2 K/uL (0.0-0.7); EOSINOPHILS % (AUTO) 1.4 % (0.0-7.0); HEMOGLOBIN 8.7 g/dL (12.5-16.3); LYMPHOCYTES # (AUTO) 0.9 K/uL (0.8-4.8); LYMPHOCYTES % (AUTO) 6.3 % (20.5-51.5); MEAN CORPUSCULAR HEMOGLOBIN 27.6 uug (23.8-33.4); MEAN CORPUSCULAR HGB CONC 31 g/dL (32.5-36.3); MEAN CORPUSCULAR VOLUME 88.3 fL (73.0-96.2); MONOCYTES # (AUTO) 0.9 K/uL (0.1-1.30); MONOCYTES % (AUTO) 6.3 % (0.0-11.0); NEUTROPHILS # (AUTO) 11.5 K/uL (1.8-8.9); NEUTROPHILS % (AUTO) 85.3 % (38.5-71.5); PLATELET COUNT (AUTO) 210 K/uL (152-348); RED BLOOD CELL COUNT(AUTO) 3.17 MIL/uL (4.06-5.63); RED CELL DISTRIBUTION WIDTH 20.7 % (12.1-16.2); WHITE BLOOD COUNT (AUTO) 13.4 K/uL (3.6-10.2)
[2023-05-12 05:22] LABS: DIFFERENTIAL COMMENT 1
[2023-05-12 05:29] LABS: CREATININE 2.9 mg/dL (0.6-1.3); PHOSPHOROUS 5.8 mg/dL (2.5-4.9); VANCOMYCIN,RANDOM 18.2 ug/mL (20.0-30.0)
[2023-05-12 05:57] LABS: ABG BASE EXCESS -3.7 mmol/L (-2.0-2.0); ABG HCO3 20.6 mmol/L (22.0-26.0); ABG PCO2 34.3 mmHg (35.0-48.0); ABG PH 7.397 (7.340-7.440); ABG PO2 77.9 mmHg (75.0-100.0); ABG SITE LEFT RADIAL; ABG TOTAL HEMOGLOBIN 9.8 G/dL (14.0-18.0); AaDO2 95.6 mmHg; COHb 0.2 % (0.0-3.9); MetHb 0.3 % (0.0-1.5); O2Hb 93.4 % (94.0-97.0); VT, ABG 550 mL
[2023-05-12] MEDS: VANCOMYCIN IV 500 MG in IV DEXTROSE 5% 100 ML IV ONE (18:19)
[2023-05-12] MEDS: ALTEPLASE 2 MG VIAL XX ONE (18:19)
[2023-05-12] MEDS: MEROPENEM 500 MG in IV NORMAL SALINE 50 ML IV SCH (20:50)
[2023-05-13] VITALS (64 sets, daily range): BP systolic 88–127; BP diastolic 37–92; TEMP 97.3–98.9; O2SAT 96–100
[2023-05-13 04:59] LABS: BASOPHILS # (AUTO) 0.1 K/UL (0.0-0.2); BASOPHILS % (AUTO) 0.7 % (0.0-2.0); EOSINOPHILS # (AUTO) 0.3 K/uL (0.0-0.7); EOSINOPHILS % (AUTO) 2.4 % (0.0-7.0); HEMOGLOBIN 8.2 g/dL (12.5-16.3); LYMPHOCYTES % (AUTO) 6.9 % (20.5-51.5); MEAN CORPUSCULAR HEMOGLOBIN 27.7 uug (23.8-33.4); MEAN CORPUSCULAR HGB CONC 31 g/dL (32.5-36.3); MEAN CORPUSCULAR VOLUME 88.3 fL (73.0-96.2); MONOCYTES % (AUTO) 6.6 % (0.0-11.0); NEUTROPHILS # (AUTO) 12.1 K/uL (1.8-8.9); NEUTROPHILS % (AUTO) 83.4 % (38.5-71.5); PLATELET COUNT (AUTO) 219 K/uL (152-348); RED BLOOD CELL COUNT(AUTO) 2.95 MIL/uL (4.06-5.63); RED CELL DISTRIBUTION WIDTH 21.5 % (12.1-16.2); WHITE BLOOD COUNT (AUTO) 14.6 K/uL (3.6-10.2)
[2023-05-13 05:13] LABS: DIFFERENTIAL COMMENT 1
[2023-05-13 05:24] LABS: CALCIUM 7.5 mg/dL (8.5-10.1); CREATININE 2.7 mg/dL (0.6-1.3); MAGNESIUM 1.8 mg/dL (1.8-2.4); PHOSPHOROUS 5.2 mg/dL (2.5-4.9); POTASSIUM 3.6 mmol/L (3.5-5.1)
[2023-05-13 06:26] LABS: ABG BASE EXCESS -0.5 mmol/L (-2.0-2.0); ABG HCO3 23.8 mmol/L (22.0-26.0); ABG PCO2 37.4 mmHg (35.0-48.0); ABG PH 7.422 (7.340-7.440); ABG PO2 92.9 mmHg (75.0-100.0); ABG SITE RIGHT RADIAL; ABG TOTAL HEMOGLOBIN 8.6 G/dL (14.0-18.0); AaDO2 97.3 mmHg; COHb 0.7 % (0.0-3.9); MetHb 0.5 % (0.0-1.5); O2Hb 95.5 % (94.0-97.0); VT, ABG 550 mL
[2023-05-13] MEDS: NOREPINEPHRINE BITARTRATE 8 MG in IV NORMAL SALINE 242 ML IV PRN (14:05)
[2023-05-13] MEDS ORDERED: MAGNESIUM SULFATE/D5W 100 ML IV SCH (23:15)
[2023-05-14] VITALS (67 sets, daily range): BP systolic 51–156; BP diastolic 17–135; TEMP 97.2–98.9; O2SAT 89–100
[2023-05-14 05:21] LABS: ABG HCO3 23.1 mmol/L (22.0-26.0); ABG PCO2 40.9 mmHg (35.0-48.0); ABG PO2 80.1 mmHg (75.0-100.0); ABG TOTAL HEMOGLOBIN 9.9 G/dL (14.0-18.0); AaDO2 95.5 mmHg; COHb 0.6 % (0.0-3.9); MetHb 0.3 % (0.0-1.5); O2Hb 93.6 % (94.0-97.0); VT, ABG 550 mL
[2023-05-14 05:32] LABS: BASOPHILS # (AUTO) 0.1 K/UL (0.0-0.2); BASOPHILS % (AUTO) 0.7 % (0.0-2.0); EOSINOPHILS # (AUTO) 0.2 K/uL (0.0-0.7); EOSINOPHILS % (AUTO) 1.3 % (0.0-7.0); HEMATOCRIT 27.4 % (36.7-47.1); HEMOGLOBIN 8.6 g/dL (12.5-16.3); LYMPHOCYTES # (AUTO) 0.9 K/uL (0.8-4.8); LYMPHOCYTES % (AUTO) 5.5 % (20.5-51.5); MEAN CORPUSCULAR HEMOGLOBIN 27.7 uug (23.8-33.4); MEAN CORPUSCULAR HGB CONC 31 g/dL (32.5-36.3); MEAN CORPUSCULAR VOLUME 88.5 fL (73.0-96.2); MONOCYTES # (AUTO) 1.1 K/uL (0.1-1.30); MONOCYTES % (AUTO) 6.7 % (0.0-11.0); NEUTROPHILS # (AUTO) 13.8 K/uL (1.8-8.9); NEUTROPHILS % (AUTO) 85.8 % (38.5-71.5); PLATELET COUNT (AUTO) 309 K/uL (152-348); RED CELL DISTRIBUTION WIDTH 22.3 % (12.1-16.2); WHITE BLOOD COUNT (AUTO) 16.1 K/uL (3.6-10.2)
[2023-05-14 05:41] LABS: DIFFERENTIAL COMMENT 1
[2023-05-14 06:02] LABS: CREATININE 2.7 mg/dL (0.6-1.3); MAGNESIUM 1.9 mg/dL (1.8-2.4); PHOSPHOROUS 5.8 mg/dL (2.5-4.9); POTASSIUM 3.5 mmol/L (3.5-5.1)
[2023-05-14] MEDS: NOREPINEPHRINE BITARTRATE 32 MG in IV NORMAL SALINE 218 ML IV PRN (11:02)
[2023-05-14] MEDS: VANCOMYCIN IV 500 MG in IV DEXTROSE 5% 100 ML IV ONE (21:54)
[2023-05-15] VITALS (60 sets, daily range): BP systolic 88–153; BP diastolic 42–136; TEMP 97–98; O2SAT 96–100
[2023-05-15 05:56] LABS: BASOPHILS # (AUTO) 0.1 K/UL (0.0-0.2); EOSINOPHILS # (AUTO) 0.3 K/uL (0.0-0.7); EOSINOPHILS % (AUTO) 2.3 % (0.0-7.0); HEMATOCRIT 34.1 % (36.7-47.1); HEMOGLOBIN 10.7 g/dL (12.5-16.3); LYMPHOCYTES # (AUTO) 0.4 K/uL (0.8-4.8); LYMPHOCYTES % (AUTO) 3.1 % (20.5-51.5); MEAN CORPUSCULAR HEMOGLOBIN 27.6 uug (23.8-33.4); MEAN CORPUSCULAR HGB CONC 31 g/dL (32.5-36.3); MEAN CORPUSCULAR VOLUME 88.1 fL (73.0-96.2); MONOCYTES # (AUTO) 0.7 K/uL (0.1-1.30); MONOCYTES % (AUTO) 6.5 % (0.0-11.0); NEUTROPHILS # (AUTO) 10.1 K/uL (1.8-8.9); NEUTROPHILS % (AUTO) 87.1 % (38.5-71.5); PLATELET COUNT (AUTO) 225 K/uL (152-348); RED BLOOD CELL COUNT(AUTO) 3.87 MIL/uL (4.06-5.63); RED CELL DISTRIBUTION WIDTH 22.1 % (12.1-16.2); WHITE BLOOD COUNT (AUTO) 11.6 K/uL (3.6-10.2)
[2023-05-15 06:54] LABS: ALBUMIN 1.7 g/dL (3.4-5.0); BILIRUBIN,TOTAL 1.8 mg/dL (0.2-1.0); CALCIUM 7.8 mg/dL (8.5-10.1); CREATININE 2.4 mg/dL (0.6-1.3); MAGNESIUM 1.8 mg/dL (1.8-2.4); PHOSPHOROUS 4.8 mg/dL (2.5-4.9); POTASSIUM 3.2 mmol/L (3.5-5.1)
[2023-05-15 07:08] LABS: ABG BASE EXCESS -0.4 mmol/L (-2.0-2.0); ABG HCO3 23.8 mmol/L (22.0-26.0); ABG PCO2 37.4 mmHg (35.0-48.0); ABG PH 7.422 (7.340-7.440); ABG PO2 76.7 mmHg (75.0-100.0); ABG SITE LEFT RADIAL; ABG TOTAL HEMOGLOBIN 9.9 G/dL (14.0-18.0); AaDO2 95.7 mmHg; COHb 0.3 % (0.0-3.9); MetHb 0.3 % (0.0-1.5); O2Hb 93.7 % (94.0-97.0); VT, ABG 561 mL
[2023-05-15 07:27] LABS: DIFFERENTIAL COMMENT 1
[2023-05-15] MEDS: PANTOPRAZOLE ORAL SUSPENSION 40 MG SUSPDR.PKT GT SCH (08:05)
[2023-05-15] MEDS: POTASSIUM CHLORIDE 50 ML IV SCH (10:51)
[2023-05-15 11:11] LABS: HEPATITIS B CORE AB, IgM Negative (Negative); HEPATITIS B CORE AB, TOTAL Negative (Negative); HEPATITIS Be ANTIGEN Negative (Negative); HEPATITIS C VIRUS ANTIBODY Non Reactive (Non Reactive)
[2023-05-16] VITALS (40 sets, daily range): BP systolic 91–133; BP diastolic 42–96; TEMP 96.6–98.4; O2SAT 97–100
[2023-05-16 05:44] LABS: BASOPHILS # (AUTO) 0.1 K/UL (0.0-0.2); BASOPHILS % (AUTO) 0.8 % (0.0-2.0); EOSINOPHILS # (AUTO) 0.4 K/uL (0.0-0.7); EOSINOPHILS % (AUTO) 2.8 % (0.0-7.0); HEMATOCRIT 25.8 % (36.7-47.1); LYMPHOCYTES # (AUTO) 0.5 K/uL (0.8-4.8); LYMPHOCYTES % (AUTO) 4.2 % (20.5-51.5); MEAN CORPUSCULAR HEMOGLOBIN 27.3 uug (23.8-33.4); MEAN CORPUSCULAR HGB CONC 31 g/dL (32.5-36.3); MEAN CORPUSCULAR VOLUME 88.2 fL (73.0-96.2); MONOCYTES # (AUTO) 1.1 K/uL (0.1-1.30); MONOCYTES % (AUTO) 8.2 % (0.0-11.0); NEUTROPHILS # (AUTO) 10.7 K/uL (1.8-8.9); PLATELET COUNT (AUTO) 302 K/uL (152-348); RED BLOOD CELL COUNT(AUTO) 2.92 MIL/uL (4.06-5.63); RED CELL DISTRIBUTION WIDTH 21.8 % (12.1-16.2); WHITE BLOOD COUNT (AUTO) 12.8 K/uL (3.6-10.2)
[2023-05-16 05:49] LABS: DIFFERENTIAL COMMENT 1
[2023-05-16 06:07] LABS: CALCIUM 7.7 mg/dL (8.5-10.1); CREATININE 2.5 mg/dL (0.6-1.3); MAGNESIUM 1.7 mg/dL (1.8-2.4); POTASSIUM 3.2 mmol/L (3.5-5.1)
[2023-05-16] MEDS ORDERED: NOREPINEPHRINE BITARTRATE 8 MG in IV NORMAL SALINE 242 ML IV PRN (06:15)
[2023-05-16 06:18] LABS: ABG BASE EXCESS 0.4 mmol/L (-2.0-2.0); ABG HCO3 25.1 mmol/L (22.0-26.0); ABG PCO2 40.7 mmHg (35.0-48.0); ABG PH 7.408 (7.340-7.440); ABG PO2 83.1 mmHg (75.0-100.0); ABG TOTAL HEMOGLOBIN 9.5 G/dL (14.0-18.0); AaDO2 96.3 mmHg; COHb 0.6 % (0.0-3.9); MetHb 0.2 % (0.0-1.5); O2Hb 94.9 % (94.0-97.0); VT, ABG 550 mL
[2023-05-16] MEDS ORDERED: MAGNESIUM SULFATE/D5W 100 ML IV SCH (09:30)
[2023-05-16] MEDS ORDERED: POTASSIUM CHLORIDE 20 MEQ POWDER PACKET NG ONE (09:30)
[2023-05-16] MEDS: VANCOMYCIN IV 500 MG in IV DEXTROSE 5% 100 ML IV SCH (23:14)
[2023-05-17] VITALS (69 sets, daily range): BP systolic 43–161; BP diastolic 11–138; TEMP 96.7–98.2; O2SAT 97–100
[2023-05-17 05:32] LABS: BASOPHILS # (AUTO) 0.1 K/UL (0.0-0.2); BASOPHILS % (AUTO) 0.9 % (0.0-2.0); EOSINOPHILS # (AUTO) 0.2 K/uL (0.0-0.7); EOSINOPHILS % (AUTO) 1.8 % (0.0-7.0); HEMATOCRIT 24.4 % (36.7-47.1); HEMOGLOBIN 7.7 g/dL (12.5-16.3); LYMPHOCYTES # (AUTO) 0.5 K/uL (0.8-4.8); LYMPHOCYTES % (AUTO) 4.3 % (20.5-51.5); MEAN CORPUSCULAR HGB CONC 32 g/dL (32.5-36.3); MEAN CORPUSCULAR VOLUME 88.1 fL (73.0-96.2); MONOCYTES # (AUTO) 1.2 K/uL (0.1-1.30); MONOCYTES % (AUTO) 9.9 % (0.0-11.0); NEUTROPHILS # (AUTO) 9.8 K/uL (1.8-8.9); NEUTROPHILS % (AUTO) 83.1 % (38.5-71.5); PLATELET COUNT (AUTO) 272 K/uL (152-348); RED BLOOD CELL COUNT(AUTO) 2.76 MIL/uL (4.06-5.63); RED CELL DISTRIBUTION WIDTH 21.8 % (12.1-16.2); WHITE BLOOD COUNT (AUTO) 11.8 K/uL (3.6-10.2)
[2023-05-17 05:35] LABS: DIFFERENTIAL COMMENT 1
[2023-05-17 05:58] LABS: BILIRUBIN,TOTAL 1.4 mg/dL (0.2-1.0); CALCIUM 7.5 mg/dL (8.5-10.1); CREATININE 2.3 mg/dL (0.6-1.3); MAGNESIUM 1.7 mg/dL (1.8-2.4); POTASSIUM 3.3 mmol/L (3.5-5.1); TOTAL PROTEIN, SERUM 5.6 g/dL (6.4-8.2)
[2023-05-17 06:03] LABS: ALBUMIN 1.5 g/dL (3.4-5.0)
[2023-05-17 06:17] LABS: ABG BASE EXCESS -0.8 mmol/L (-2.0-2.0); ABG HCO3 24.2 mmol/L (22.0-26.0); ABG PCO2 41.3 mmHg (35.0-48.0); ABG PH 7.386 (7.340-7.440); ABG SITE LEFT RADIAL; ABG TOTAL HEMOGLOBIN 8.8 G/dL (14.0-18.0); AaDO2 74.5 mmHg; COHb 0.4 % (0.0-3.9); MetHb 0.5 % (0.0-1.5); O2Hb 68.1 % (94.0-97.0); VT, ABG 550 mL
[2023-05-17] MEDS: MAGNESIUM SULFATE/D5W 100 ML IV SCH ×2 (12:30→20:21)
[2023-05-17] MEDS: POTASSIUM CHLORIDE 50 ML IV SCH ×2 (12:30→20:21)
[2023-05-17] MEDS: [UNRECOGNIZED DRUG - MIXTURE] GT PRN (14:39)
[2023-05-17] MEDS: NOREPINEPHRINE BITARTRATE 8 MG in IV NORMAL SALINE 242 ML IV PRN (17:25)
[2023-05-17] MEDS ORDERED: NOREPINEPHRINE BITARTRATE 32 MG in IV NORMAL SALINE 218 ML IV PRN (17:30)
[2023-05-17] MEDS: NOREPINEPHRINE BITARTRATE 32 MG in IV NORMAL SALINE 218 ML IV PRN (18:28)
[2023-05-18] VITALS (78 sets, daily range): BP systolic 36–152; BP diastolic 2–117; TEMP 97.5–98.5; O2SAT 91–99
[2023-05-18] MEDS: NOREPINEPHRINE BITARTRATE 8 MG in IV NORMAL SALINE 242 ML IV PRN (02:52)
[2023-05-18] MEDS ORDERED: NOREPINEPHRINE BITARTRATE 4 MG/4 ML VIAL IV ONE ×2 (05:02→06:33)
[2023-05-18 05:15] LABS: BASOPHILS # (AUTO) 0.1 K/UL (0.0-0.2); BASOPHILS % (AUTO) 0.5 % (0.0-2.0); EOSINOPHILS % (AUTO) 0.2 % (0.0-7.0); HEMATOCRIT 27.4 % (36.7-47.1); HEMOGLOBIN 8.4 g/dL (12.5-16.3); LYMPHOCYTES # (AUTO) 0.8 K/uL (0.8-4.8); LYMPHOCYTES % (AUTO) 5.6 % (20.5-51.5); MEAN CORPUSCULAR HEMOGLOBIN 27.4 uug (23.8-33.4); MEAN CORPUSCULAR HGB CONC 31 g/dL (32.5-36.3); MEAN CORPUSCULAR VOLUME 88.7 fL (73.0-96.2); MONOCYTES # (AUTO) 1.6 K/uL (0.1-1.30); MONOCYTES % (AUTO) 10.8 % (0.0-11.0); NEUTROPHILS # (AUTO) 12.1 K/uL (1.8-8.9); NEUTROPHILS % (AUTO) 82.9 % (38.5-71.5); PLATELET COUNT (AUTO) 255 K/uL (152-348); RED BLOOD CELL COUNT(AUTO) 3.09 MIL/uL (4.06-5.63); RED CELL DISTRIBUTION WIDTH 22.1 % (12.1-16.2); WHITE BLOOD COUNT (AUTO) 14.5 K/uL (3.6-10.2)
[2023-05-18 05:24] LABS: DIFFERENTIAL COMMENT 1
[2023-05-18 05:33] LABS: ABG BASE EXCESS -4.7 mmol/L (-2.0-2.0); ABG HCO3 20.7 mmol/L (22.0-26.0); ABG PCO2 39.6 mmHg (35.0-48.0); ABG PH 7.336 (7.340-7.440); ABG PO2 100.4 mmHg (75.0-100.0); ABG TOTAL HEMOGLOBIN 9.5 G/dL (14.0-18.0); AaDO2 97.3 mmHg; COHb 0.4 % (0.0-3.9); MetHb 0.3 % (0.0-1.5); O2Hb 96.4 % (94.0-97.0); VT, ABG 550 mL
[2023-05-18 05:34] LABS: ALBUMIN 1.7 g/dL (3.4-5.0); BILIRUBIN,DIRECT 1.6 mg/dL (0.0-0.2); BILIRUBIN,TOTAL 1.9 mg/dL (0.2-1.0); CALCIUM 7.9 mg/dL (8.5-10.1); CREATININE 2.5 mg/dL (0.6-1.3); MAGNESIUM 1.9 mg/dL (1.8-2.4); PHOSPHOROUS 6.2 mg/dL (2.5-4.9); POTASSIUM 3.7 mmol/L (3.5-5.1); TOTAL PROTEIN, SERUM 6.5 g/dL (6.4-8.2)
[2023-05-18] MEDS: VASOPRESSIN 40 UNIT in IV NORMAL SALINE 40 ML IV PRN (11:02)
[2023-05-18] MEDS: IV NORMAL SALINE 500 ML IV ONE (16:21)
[2023-05-18] MEDS: DOBUTamine IV 250 ML IV PRN (20:36)
[2023-05-19] VITALS (64 sets, daily range): BP systolic 34–112; BP diastolic 12–74; TEMP 98.1–98.2; O2SAT 0–99
[2023-05-19] MEDS ORDERED: DOBUTamine IV 250 ML IV ONE (05:08)
[2023-05-19 05:18] LABS: MONOCYTES # (AUTO) 1.2 K/uL (0.1-1.30)
[2023-05-19 05:22] LABS: BASOPHILS # (AUTO) 0.1 K/UL (0.0-0.2); BASOPHILS % (AUTO) 0.3 % (0.0-2.0); HEMATOCRIT 23.8 % (36.7-47.1); LYMPHOCYTES # (AUTO) 0.5 K/uL (0.8-4.8); MEAN CORPUSCULAR HEMOGLOBIN 27.6 uug (23.8-33.4); MEAN CORPUSCULAR HGB CONC 31 g/dL (32.5-36.3); MEAN CORPUSCULAR VOLUME 89.2 fL (73.0-96.2); MONOCYTES % (AUTO) 7.2 % (0.0-11.0); NEUTROPHILS # (AUTO) 15.5 K/uL (1.8-8.9); NEUTROPHILS % (AUTO) 89.5 % (38.5-71.5); PLATELET COUNT (AUTO) 195 K/uL (152-348); RED BLOOD CELL COUNT(AUTO) 2.67 MIL/uL (4.06-5.63); RED CELL DISTRIBUTION WIDTH 21.4 % (12.1-16.2); WHITE BLOOD COUNT (AUTO) 17.3 K/uL (3.6-10.2)
[2023-05-19 05:24] LABS: ABG BASE EXCESS -6.2 mmol/L (-2.0-2.0); ABG HCO3 19.5 mmol/L (22.0-26.0); ABG PCO2 39.5 mmHg (35.0-48.0); ABG PH 7.311 (7.340-7.440); ABG PO2 175.4 mmHg (75.0-100.0); ABG SITE LEFT RADIAL; ABG TOTAL HEMOGLOBIN 8.5 G/dL (14.0-18.0); AaDO2 99.1 mmHg; COHb 0.2 % (0.0-3.9); MetHb 0.4 % (0.0-1.5); O2Hb 98.6 % (94.0-97.0); VT, ABG 550 mL
[2023-05-19 05:26] LABS: HEMOGLOBIN 7.3 g/dL (12.5-16.3)
[2023-05-19 05:27] LABS: DIFFERENTIAL COMMENT 1
[2023-05-19 05:32] LABS: CALCIUM 7.4 mg/dL (8.5-10.1); CREATININE 2.7 mg/dL (0.6-1.3); MAGNESIUM 1.7 mg/dL (1.8-2.4); PHOSPHOROUS 7.3 mg/dL (2.5-4.9); POTASSIUM 3.9 mmol/L (3.5-5.1)
[2023-05-19] MEDS: [UNRECOGNIZED DRUG - MIXTURE] GT PRN (10:42)
[2023-05-19] MEDS ORDERED: MEROPENEM 500 MG in IV NORMAL SALINE 50 ML IV SCH ×2 (15:45→16:00)
[2023-05-19] MEDS ORDERED: VANCOMYCIN IV 1,000 MG in IV DEXTROSE 5% 250 ML IV ONE (17:00)
== END 2023-05-19 17:00 | DRG 870 ==
LOC: ER 03:36 → TRANSITION 09:39 → UNDOADMIN 09:39 → CCU 05-02 18:45 → MED 05-03 14:35 → CCUOV 05-03 15:22 → CCU 05-03 15:33
PROVIDERS: ADMIT Internal Medicine; ATTEND Internal Medicine
PROC: 5A09357 Assistance with Respiratory Ventilation, Less than 24 Consecutive Hours, Continuous Positive Airway Pressure (ICD-10-PCS; principal; 2023-05-01)
PROC: 5A1955Z Respiratory Ventilation, Greater than 96 Consecutive Hours (ICD-10-PCS; 2023-05-02)
PROC: B548ZZA Ultrasonography of Superior Vena Cava, Guidance (ICD-10-PCS; 2023-05-02)
PROC: 0BH18EZ Insertion of Endotracheal Airway into Trachea, Via Natural or Artificial Opening Endoscopic (ICD-10-PCS; 2023-05-02)
PROC: 02HV33Z Insertion of Infusion Device into Superior Vena Cava, Percutaneous Approach (ICD-10-PCS; 2023-05-03)
PROC: 5A12012 Performance of Cardiac Output, Single, Manual (ICD-10-PCS; 2023-05-05)
PROC: 5A1D70Z Performance of Urinary Filtration, Intermittent, Less than 6 Hours Per Day (ICD-10-PCS; 2023-05-05)
PROC: 5A12012 Performance of Cardiac Output, Single, Manual (ICD-10-PCS; 2023-05-08)
DX: A41.9 Sepsis, unspecified organism (principal); N17.0 Acute kidney failure with tubular necrosis; J69.0 Pneumonitis due to inhalation of food and vomit; K72.00 Acute and subacute hepatic failure without coma; I21.A1 Myocardial infarction type 2; E43 Unspecified severe protein-calorie malnutrition; G92.8 Other toxic encephalopathy; Z66 Do not resuscitate; I50.43 Acute on chronic combined systolic (congestive) and diastolic (congestive) heart failure; J96.22 Acute and chronic respiratory failure with hypercapnia; J96.21 Acute and chronic respiratory failure with hypoxia; J15.212 Pneumonia due to Methicillin resistant Staphylococcus aureus; R65.21 Severe sepsis with septic shock; I13.0 Hypertensive heart and chronic kidney disease with heart failure and stage 1 through stage 4 chronic kidney disease, or unspecified chronic kidney disease; Z68.41 Body mass index [BMI] 40.0-44.9, adult; I48.20 Chronic atrial fibrillation, unspecified; I31.39 Other pericardial effusion (noninflammatory); E87.29 Other acidosis; N10 Acute pyelonephritis; R18.8 Other ascites; J98.11 Atelectasis; I46.8 Cardiac arrest due to other underlying condition; E66.01 Morbid (severe) obesity due to excess calories; D64.9 Anemia, unspecified; E11.42 Type 2 diabetes mellitus with diabetic polyneuropathy; G89.29 Other chronic pain; I27.20 Pulmonary hypertension, unspecified; I25.2 Old myocardial infarction; E87.5 Hyperkalemia; E11.22 Type 2 diabetes mellitus with diabetic chronic kidney disease; N18.2 Chronic kidney disease, stage 2 (mild); Z79.01 Long term (current) use of anticoagulants; G47.9 Sleep disorder, unspecified; Z22.322 Carrier or suspected carrier of Methicillin resistant Staphylococcus aureus; I07.1 Rheumatic tricuspid insufficiency; Z79.82 Long term (current) use of aspirin; Z79.899 Other long term (current) drug therapy
CPT/HCPCS: 32555; 36415; 36600; 70030-TC; 71045; 71250; 76604; 76770; 82803; 83550; 83605; 83735; 83970; 84100; 84155; 84165; 84300; 84443; 84478; 84484; 85025; 85610; 85730; 86704; 86705; 86706; 86803; 87040; 87340; 87350; 90937; 92950; 93005; 93307; 94002; 94003; 94660; 94760; A4606; A4663; C9113; G0378; J0171; J0282; J0330; J0360; J0696; J1205; J1644; J1815; J1940; J2185; J2270; J2405; J2543; J2997; J3370; J3475; J3480; J3490; J7040; J7050; J7060; J7070; P9047